=== PATIENT | male | born 2000 | race African-American/Black ===

== ENCOUNTER 2018-02-12 17:40 | Inpatient (IN) ==
[2018-02-12] MEDS ORDERED: Haloperidol Inj 5 MG/ML Ampul IM ONE (17:53)
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
[2018-02-12 18:13] LABS: Baso % (Auto) 0.5 % (0.0-2.0); Eos % (Auto) 0.6 % (0.0-4.0); Hematocrit 41.8 % (39.0-51.0); Hemoglobin 14.1 gm/dL (13.0-17.0); Lymph # (Auto) 1.1 th/mm3 (1.0-4.8); Lymph % (Auto) 13.1 % (9.0-44.0); Mean Corpuscular HGB Conc 33.7 % (32.0-36.0); Mean Corpuscular Hemoglobin 32.9 pg (27.0-34.0); Mean Corpuscular Volume 97.5 fL (80.0-100.0); Mono # (Auto) 0.4 th/mm3 (0.0-0.9); Mono % (Auto) 5.2 % (0.0-8.0); Neut # (Auto) 6.6 th/mm3 (1.8-7.7); Neut % (Auto) 80.6 % (16.0-70.0); Platelet Count 174 th/mm3 (150-450); Red Blood Count 4.28 mil/mm3 (4.50-5.90); Red Cell Distribution Width 14.4 % (11.6-17.2); White Blood Count 8.2 th/mm3 (4.0-11.0)
[2018-02-12 18:33] LABS: Alanine Aminotransferase 28 U/L (9-52); Albumin 3.8 g/dL (3.4-5.0); Anion Gap 9 meq/L (5-15); Aspartate Aminotransferase 36 U/L (15-39); Blood Urea Nitrogen 10 mg/dL (7-18); Calcium 8.7 mg/dL (8.5-10.1); Carbon Dioxide 23.1 meq/L (21.0-32.0); Chloride 109 meq/L (98-107); Glomerular Filtration Rate Greater Than 89 mL/min (>89); Glucose,Random 95 mg/dL (74-106); Sodium 141 meq/L (136-145)
[2018-02-12 18:35] LABS: Alkaline Phosphatase 112 U/L (45-117); Total Protein 7.4 g/dL (6.4-8.2)
[2018-02-12 20:02] LABS: Amphetamine Screen,Urine Neg (Neg); Barbiturate Screen,Urine Neg (Neg); Cannabinoid Screen,Urine Neg (Neg); Cocaine Screen,Urine Neg (Neg)
[2018-02-12 20:07] LABS: Opiate Screen,Urine Neg (Neg)
--- NOTE | 2018-02-12 20:33 | CT ---
EXAM DATE: 02/12/2018 6:41 PM EDT AGE/SEX: 17 years / Male INDICATIONS: Altered mental status. CLINICAL DATA: This is the patient's initial encounter. Patient reports that signs and symptoms have been present for 1 day and indicates a pain score of 0/10. MEDICAL/SURGICAL HISTORY: None. None. RADIATION DOSE: 36.35 CTDI (mGy) COMPARISON: No prior exams available for comparison. TECHNIQUE: CT of the head without contrast. Using automated exposure control and adjustment of the mA and/or kV according to patient size, radiation dose was kept as low as reasonably achievable to ob tain optimal diagnostic quality images. DICOM format image data is available electronically for revi ew and comparison. FINDINGS: Cerebrum: The ventricles are normal for age. No evidence of midline shift, mass lesion, hemorrhage or acute infarction. No extraaxial fluid collections are seen. Posterior Fossa: The cerebellum and brainstem are intact. The 4th ventricle is midline. The cerebe llopontine angle is unremarkable. Extracranial: The visualized portion of the orbits is intact. Skull: The calvaria is intact. No evidence of skull fracture. CONCLUSION: 1. Negative noncontrast CT brain. . Electronically signed by: Rashawn Durant MD 02/12/2018 8:31 PM EDT
[2018-02-12 21:37] LABS: Bilirubin,Urine Negative (Negative); Clarity,Urine Clear (Clear); Color,Urine Yellow (Yellw/Straw); Glucose,Urine (UA) Negative (Negative); Leukocyte Esterase,Urine Negative (Negative); Mucus,Urine Few /lpf (Occasional); Nitrite,Urine Negative (Negative); Specific Gravity,Urine 1.027 (1.002-1.035)
[2018-02-13] MEDS ORDERED: Aluminum/Magnesium/Simethacone Susp 30 ML UDC PO PRN (15:33)
[2018-02-13] MEDS ORDERED: Acetaminophen 325 MG Tablet PO PRN (15:33)
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
[2018-02-13 20:53] VITALS: O2SAT 95
--- NOTE | 2018-02-13 22:43 | ECG ---
Date Performed: 02/12/2018 Time Performed: 17:59:08 PTAGE: 17 years EKG: Sinus rhythm BORDERLINE RIGHT AXIS DEVIATION NONSPECIFIC T-WAVE ABNORMALITY BORDERLINE ECG PREVIOUS TRACING : 02/07/2018 13.31 Since the previous tracing, no significant change noted DOCTOR: Purvi Valenzuela Interpretating Date/Time 02/13/2018 22:42:48
[2018-02-14 05:31] VITALS: BP 122/79; PULSE 68; RESP 17; TEMP 97.4
[2018-02-14 08:35] LABS: Anion Gap 7 meq/L (5-15); Blood Urea Nitrogen 14 mg/dL (7-18); Carbon Dioxide 26.9 meq/L (21.0-32.0); Chloride 106 meq/L (98-107); Glomerular Filtration Rate Greater Than 89 mL/min (>89); Glucose,Random 79 mg/dL (74-106); Potassium 3.8 meq/L (3.5-5.1); Sodium 140 meq/L (136-145)
[2018-02-14 08:36] LABS: Cholesterol 98 mg/dL (120-200); Triglycerides 56 mg/dL (42-150)
[2018-02-14 08:38] LABS: HDL Cholesterol 34.9 mg/dL (40.0-60.0); LDL Cholesterol,Calculated 52 mg/dL (0-99)
[2018-02-14 17:43] LABS: Hemoglobin A1c 5.4 % (4.3-6.0)
--- NOTE | 2018-02-14 22:12 | P.HPPSY ---
Provisional Diagnosis Admission Date: February 13, 2018 15:44 [place] I.: Psychosis NOS Competence Certification of Person's Competence To Provide Express and Informed Consent I have personally examined Santi Weeks, a person being served at [facility] on, February 14, 2018 2212. Express and informed consent means consent voluntarily given in writing, by a competent person, after sufficient explanation and disclosure of the subject matter involved to enable the person to make a knowing and willful decision without any element of force, fraud, deceit, duress, or other form of constraint or coercion. This person is 18 years of age or older, is not now known to be incompetent to consent to treatment with a guardian advocate, and does not have a health care surrogate or proxy currently making medical treatment decisions. I have found this person to be one of the following: [] Competent to provide express and informed consent, as defined above, for voluntary admission to this facility and is competent to provide express and informed consent for treatment. He/she has the consistent capacity to make well reasoned, willful, and knowing decisions concerning his or her medical or mental health treatment. The person fully and consistently understands the purpose of the admission for examination/placement and is fully capable of personally exercising all rights assured [place] [] Incompetent to provide express and informed consent to voluntary admission, and this is incompetent to provide express and informed consent to treatment. The person must be transferred to involuntary status and a petition for a guardian advocate filed with the Circuit Court. [xxx] Refusing to provide express and informed consent to voluntary admission but is competent to provide express and informed consent for treatment. The person must be discharged or transferred to involuntary status. Form shall be completed within 24 hours of a person's arrival at the receiving facility and filed in the clinical record of each person: 1. Admitted on a voluntary basis 2. Permitted to provide express and informed consent to his/her own treatment 3. Allowed to transfer from involuntary to voluntary status 4. Prior to permitting a person to consent to his or her own treatment after having been previously found incompetent to consent to treatment. History of Present Illness Capacity: Has capacity History of Present Illness: Patient is a 17-year-old -[place] man, single, no children, student at [employer], unemployed and supported by parents, with past psychiatric history of ADHD as per patient, no prior psychiatric admissions, suicide attempt or self-injurious behavior no substance use history, no significant past medical history who was brought to the ED by EMS after being found drooling at the cafeteria counter which another student had noticed and called EMS for concerns of patient having altered mental status. Patient also was noted to be bizarre and nonverbal at the time. 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 Patient also was noted to be intermittently aggressive in the ED requiring ETO and due to concern for possible psychosis patient was admitted to the inpatient psychiatry unit for further evaluation and management. Patient was found sitting hospital bed noted B, cooperative. As per nursing report since transfer to the inpatient unit patient has been calm pleasant and cooperative with no behavioral disturbances and interacting adequately with staff. Patient states that he had been having episode of shortness of breath at school and having poor recollection of events prior to his admission stating that he remembers waking up in the ambulance and does not recall being combative in the ED which he receive ETO. Patient states that he had played a card game with other students called "cards against humanity" which the allegations with terroristic threats and numbers of threatening to kill others had arise states that it was simply part of a game he was playing with his friends which others around had taken out of context. Collateral information obtained by patient's mother reported that patient has not had any past psychiatric hospitalizations, was surprised to know the patient has been intermittently agitated at school denying patient having had any history of substance use stating that he has always been "advocate". Patient's mother states that she has already arranged for patient to have outpatient mental health follow-up immediately if patient would be discharged to her care at a behavioral health clinic in [facility]. Recommendations of having patient remain on the inpatient for further observation despite patient having had appropriate interactions and behavior since admission but patient's brother had insisted that patient be discharged to her care AGAINST MEDICAL ADVICE she would take responsibility of having her son followed up on an outpatient basis which will provide a less restrictive setting for his continued monitoring and treatment. Family psychiatric history: Denies Past psychiatric history: Previous psychiatric diagnosis of ADHD as per patient , no prior psychiatric admissions, no previous suicide attempt or self- injurious behavior. No outpatient mental health follow-up. Patient reports having been seen by a psychiatrist with the ages of 7-12 years old for ADHD and behavioral issues which patient had been on Adderall and Wellbutrin in the past and last took at the age of [age] years old. No further mental health interventions or treatments since. Substance use history: Denies Past medical history: Denies Allergies: Sulfas Social history: Single, no children, unemployed, supported by parents, no background, no asked to firearms, no legal history. Patient is currently a student at [employer]. - Inpatient Certification I certify that the inpatient services were ordered in accordance with Medicare regulations governing the order. This includes certification that hospital inpatient services are reasonable and necessary and in the case of services not specified as inpatient-only under 42 CFR 419.22(n), that they are appropriately provided as inpatient services in accordance to with the 2-midnight benchmark under 43 CFR 412.3(e) I certify that inpatient psychiatric hospital services are medically necessary. Evaluation and treatment and/or diagnostic testing are expected to improve the patient's condition. The patient needs on a daily basis, active treatment furnished directly by or requiring the supervision of inpatient psychiatric facility personnel. Estimated Total Length of Stay (Days): 5 Plans for Post Hospital Care: Home Review of Systems All other systems reviewed negative except as stated [facility] - History History Provided By: Patient, Family Member, Medical Record - Medical History Medical History: Medical History (Last Reviewed 02/12/18 @ 18:04 by Nicole Patel) Memory loss of unknown cause - Tobacco History Second Hand Smoke Exposure: No Smoking Status: Never smoker - Alcohol History How Often Do You Have a Drink Containing Alcohol: Never - Substance Use History Substance History: No History of Abuse - Travel History Recent Travel in the [place] Within the Last 8 Weeks: No Recent Travel Out of the Country Within the Last 8 Weeks: No - Immunization History Tetanus Immunization: Unable to Assess Hx Influenza Vaccine This Season: Unable to Assess Quality Measures - Psychiatric History Psychological trauma history: Denies Violence risk to others in the last 6 months: Low Violence risk to self in the last 6 months: Low - Substance Abuse History Drug or alcohol use in the past 12 months: Denies - Patient Strengths Patient's strengths (minimum of 2): Verbal and communicative Medications and Allergies Active Medications: Active Medications Acetaminophen (Tylenol) 650 mg PO Q4H PRN PRN Reason: Pain 1-5 or Temp >101F Al Hydrox/Mg Hydrox/Simethicone (Mag-Al Plus Susp Liq) 30 ml PO Q6H PRN PRN Reason: DYSPEPSIA Diphenhydramine HCl (Benadryl) 50 mg PO Q6H PRN PRN Reason: For mild anxiety and/or EPS Diphenhydramine HCl (Benadryl) 50 mg PO HS PRN PRN Reason: INSOMNIA Sodium Chloride (Ns Flush) 2 ml IV.FLUSH PRN PRN PRN Reason: FLUSH AFTER USING IV ACCESS Allergies Allergy/AdvReac Type Severity Reaction Status Date / Time Sulfa (Sulfonamide Allergy Rash Verified 02/12/18 18:03 Antibiotics) Home Medications Medication Instructions Recorded Confirmed Type No Known Home Medications 02/12/18 02/12/18 History Results - Labs CBC & Chem 7: 02/12/18 18:01 02/14/18 07:25 Labs: Laboratory Results - last 24 hr 02/14/18 02/14/18 07:25 07:25 Sodium 140 Potassium 3.8 Chloride 106 Carbon Dioxide 26.9 Anion Gap 7 BUN 14 Creatinine 1.18 Estimated GFR Greater than 89 Random Glucose 79 Hemoglobin A1c 5.4 Calcium 9.0 Triglycerides 56 Cholesterol 98 L LDL Cholesterol, Calc 52 HDL Cholesterol 34.9 L Cholesterol/HDL Ratio 2.80 Exam Vital signs: Vital Signs 02/14/18 05:30 Temperature 97.4 F L Pulse Rate 68 Respiratory Rate 17 Blood Pressure 122/79 Intake & Output 02/14/18 02/14/18 02/15/18 06:59 18:59 06:59 Intake Total 720 / 720 Balance 720 / 720 Intake: Oral 720 / 720 Narrative: Patient not noted to be acute distress, no gross motor abnormalities, no signs of tremor or EPS, no psychomotor agitation or retardation. - Constitutional no acute distress Mental Status Examination Appearance: Appropriate Consciousness: Alert Orientation: x4 Motor Activity: Normal gait Speech: Unremarkable Language: Adequate Fund of Knowledge: Adequate Attention and Concentration: Adequate Memory: Unremarkable Mood: Appropriate, Good Affect: Appropriate Thought Process & Associations: Intact, Linear Thought Content: Appropriate Hallucination Type: None Delusion Type: None Suicidal Ideation: No Suicidal Plan: No Suicidal Intention: No Homicidal Ideation: No Homicidal Plan: No Homicidal Intention: No Insight: Fair Judgment: Impulsive Assessment and Plan - Assessment (1) Unspecified psychosis Code(s): F29 - Unspecified psychosis not due to a substance or known physiological condition Status: Acute - Plan Plan: Patient is a 17-year-old -[place] man with no past psychiatric history, currently a student at [employer], no substance use history, no history who presented to the ED under [place] act due to bizarre behavior and intermittently aggressive behavior in the ED since admission and had been noted to be, cooperative with no behavioral disturbances and acting appropriately with staff. Patient likely may have had a brief psychotic episode but would benefit from further observation due to concerns of having recurrence of psychotic symptoms. Patient's mother had insisted requested patient be discharged to her care despite recommendations of further observation and therefore patient will be discharged AGAINST MEDICAL ADVICE and to his mother's care as this is a less restrictive alternative in setting for patient's further observation and treatment which patient's mother plans on bringing patient directly to behavioral health outpatient clinic in [facility]. Patient will be discharged to mother's care, no longer presenting with aggressive behavior denying any suicidal homicidal ideations, denies any perceptional services or delusions and no behavioral disturbances since admission. Justification for Continued Inpatient Stay: Patient discharged AGAINST MEDICAL ADVICE to patient's mother's care which she plans on bringing patient to behavioral health outpatient clinic as this is a less restrictive setting patient's continued observation and treatment.
== END 2018-02-14 15:30 | disposition left against medical advice (07) ==
LOC: NEPE 17:40 → NEDA 02-13 15:44 → H260 02-13 17:01
PROVIDERS: ADMIT Student in an Organized Health Care Education/Training Program; ATTEND Student in an Organized Health Care Education/Training Program